=== PATIENT | female | born 1940 | race Caucasian/White ===

== ENCOUNTER 2016-09-30 15:46 | Inpatient (IN) | payer BC ==
[~2016-09-30] VITALS: Ht 165.1 cm; Wt 121.9 kg
[2016-09-30] MEDS ORDERED: Furosemide 40 MG/4 ML VIAL ONE (18:52)
[2016-09-30 20:30] VITALS: BP_SYST 102; RESP 18; TEMP 97.5; Ht 165.1 cm; Wt 121.9 kg
[2016-09-30] MEDS ORDERED: ONDANSETRON 4 MG VIAL IV PRN (20:45)
[2016-09-30] MEDS ORDERED: Furosemide 20 MG/2 ML VIAL IV ONE (20:45)
[2016-09-30] MEDS: TRAZODONE 50 MG TAB PO SCH (21:00)
[2016-09-30] MEDS: DIVALPROEX DR 500 MG TAB PO SCH (21:00)
[2016-09-30] MEDS: QUEtiapine 200 MG TAB PO SCH (21:00)
[2016-09-30 23:00] VITALS: BP_SYST 112; RESP 18; TEMP 97.6
[2016-10-01 03:00] VITALS: BP_SYST 99; RESP 18; TEMP 97.7
[2016-10-01] MEDS ORDERED: Furosemide 40 MG/4 ML VIAL IV SCH (08:00)
[2016-10-01] MEDS: ASPIRIN EC 81 MG TAB PO SCH (08:00)
[2016-10-01] MEDS ORDERED: MISSING DOSE XX ONE (08:25)
[2016-10-01 08:35] VITALS: RESP 18; TEMP 97.8
[2016-10-01] MEDS: LURASIDONE HCL 40 MG PO SCH (09:00)
[2016-10-01] MEDS ORDERED: ENOXAPARIN 40 MG/0.4 ML SYR SUBQ SCH (09:00)
[2016-10-01] MEDS ORDERED: DEXAMETHASONE 4 MG TAB PO SCH (09:00)
[2016-10-01] MEDS ORDERED: MEMANTINE HCL 7 MG PO SCH (09:00)
[2016-10-01] MEDS: DIVALPROEX DR 500 MG TAB PO SCH ×2 (09:09→20:31)
[2016-10-01] MEDS: LEVOTHYROXINE 0.075 MG TAB PO SCH (09:09)
[2016-10-01] MEDS: FLUOXETINE 20 MG CAP PO SCH (09:09)
[2016-10-01 12:23] VITALS: BP_SYST 123
[2016-10-01 12:27] VITALS: RESP 18; TEMP 97.7
[2016-10-01] MEDS: ENOXAPARIN 30 MG/0.3 ML SYR SUBQ SCH (13:23)
[2016-10-01] MEDS: Carvedilol 3.125 MG TAB PO SCH ×2 (15:05→20:31)
[2016-10-01] MEDS: LISINOPRIL 2.5 MG TAB PO SCH (15:05)
[2016-10-01] MEDS: MEMANTINE 5 MG TAB PO SCH (16:45)
[2016-10-01 17:02] VITALS: BP_SYST 103; RESP 18; TEMP 97.3
[2016-10-01] MEDS: ACETAMINOPHEN 325 MG TAB PO PRN (18:36)
[2016-10-01 19:00] VITALS: BP_SYST 127; RESP 18; TEMP 97.6
[2016-10-01] MEDS: TRAZODONE 50 MG TAB PO SCH (20:31)
[2016-10-01] MEDS: QUEtiapine 200 MG TAB PO SCH (20:31)
[2016-10-02] VITALS (12 sets, daily range): BP systolic 80–131; RESP 18–24; TEMP 97.3–98.6
[2016-10-02] MEDS: LEVOTHYROXINE 0.075 MG TAB PO SCH (06:19)
[2016-10-02] MEDS: MEMANTINE 5 MG TAB PO SCH (08:16)
[2016-10-02] MEDS: DIVALPROEX DR 500 MG TAB PO SCH ×2 (08:16→20:16)
[2016-10-02] MEDS: ASPIRIN EC 81 MG TAB PO SCH (08:16)
[2016-10-02] MEDS: FLUOXETINE 20 MG CAP PO SCH (08:16)
[2016-10-02] MEDS: LURASIDONE HCL 40 MG PO SCH (08:17)
[2016-10-02] MEDS: LISINOPRIL 2.5 MG TAB PO SCH (08:18)
[2016-10-02] MEDS: Carvedilol 3.125 MG TAB PO SCH (08:18)
[2016-10-02] MEDS ORDERED: DEXAMETHASONE 4 MG TAB PO SCH (09:00)
[2016-10-02] MEDS ORDERED: DEXAMETHASONE 0.5 MG TAB PO SCH (09:00)
[2016-10-02] MEDS: ENOXAPARIN 30 MG/0.3 ML SYR SUBQ SCH (11:35)
[2016-10-02] MEDS: ACETAMINOPHEN 325 MG TAB PO PRN (11:37)
[2016-10-02] MEDS ORDERED: Furosemide 40 MG/4 ML VIAL IV SCH (17:00)
[2016-10-02] MEDS ORDERED: AZITHROMYCIN 250 MG TAB PO ONE (18:20)
[2016-10-02] MEDS: CEFTRIAXONE 1 GM in SODIUM CHLORIDE 0.9% 50 ML IV SCH (19:47)
[2016-10-02] MEDS: ZOLPIDEM 5 MG TAB PO PRN (20:16)
[2016-10-02] MEDS: TRAZODONE 50 MG TAB PO SCH (20:16)
[2016-10-02] MEDS: QUEtiapine 200 MG TAB PO SCH (20:16)
[2016-10-03] VITALS (44 sets, daily range): BP systolic 68–130; RESP 10–22; TEMP 97.4–98.6
[2016-10-03] MEDS: LEVOTHYROXINE 0.075 MG TAB PO SCH (06:13)
[2016-10-03] MEDS: CEFTRIAXONE 1 GM in SODIUM CHLORIDE 0.9% 50 ML IV SCH (08:39)
[2016-10-03] MEDS: ASPIRIN EC 81 MG TAB PO SCH (08:39)
[2016-10-03] MEDS: FLUOXETINE 20 MG CAP PO SCH (08:40)
[2016-10-03] MEDS: MEMANTINE 5 MG TAB PO SCH (08:40)
[2016-10-03] MEDS: DIVALPROEX DR 500 MG TAB PO SCH ×2 (08:41→20:42)
[2016-10-03] MEDS: LURASIDONE HCL 40 MG PO SCH (08:41)
[2016-10-03] MEDS ORDERED: DEXAMETHASONE 4 MG TAB PO SCH (09:00)
[2016-10-03] MEDS ORDERED: SODIUM CHLORIDE 0.9% 1,000 ML IV ONE ×2 (09:00→09:15)
[2016-10-03] MEDS ORDERED: SOLU-CORTEF 100 MG/2 ML IV ONE (09:00)
[2016-10-03] MEDS ORDERED: AZITHROMYCIN 250 MG TAB PO SCH (09:00)
[2016-10-03] MEDS ORDERED: SODIUM CHLORIDE 0.9% 1,000 ML IV SCH ×2 (09:00→09:15)
[2016-10-03] MEDS ORDERED: PHARMACY TO DOSE MERREM XX SCH (09:15)
[2016-10-03] MEDS ORDERED: PHARMACY TO DOSE VANCOMYCIN IV SCH (09:15)
[2016-10-03] MEDS ORDERED: PHARMACY TO DOSE LEVAQUIN IV SCH (09:15)
[2016-10-03] MEDS ORDERED: MISSING DOSE XX ONE (09:55)
[2016-10-03] MEDS ORDERED: LACT RINGERS 1,000 ML IV ONE ×2 (10:00)
[2016-10-03] MEDS ORDERED: NOREPINEPHRINE 16 MG in DEXTROSE 5% 234 ML IV SCH (10:00)
[2016-10-03] MEDS ORDERED: LEVOFLOXACIN 750 MG/150 ML 150 ML IV SCH (10:20)
[2016-10-03] MEDS ORDERED: VANCOMYCIN 2,250 MG in SODIUM CHLORIDE 0.9% 500 ML IV ONE (10:20)
[2016-10-03] MEDS: DUONEB INH SCH ×4 (11:20→22:53)
[2016-10-03] MEDS ORDERED: PHARMACY TO DOSE CEFEPIME IV SCH (12:00)
[2016-10-03] MEDS: LACT RINGERS 1,000 ML IV SCH (12:02)
[2016-10-03] MEDS: SOLU-CORTEF 100 MG/2 ML IV SCH ×2 (13:18→18:26)
[2016-10-03] MEDS: CEFEPIME 2000 MG/100 ML D5W 100 ML IV SCH ×2 (13:18→20:48)
[2016-10-03] MEDS: ENOXAPARIN 30 MG/0.3 ML SYR SUBQ SCH (13:20)
[2016-10-03] MEDS: QUEtiapine 200 MG TAB PO SCH (20:42)
[2016-10-03] MEDS: TRAZODONE 50 MG TAB PO SCH (21:00)
[2016-10-04] VITALS (39 sets, daily range): BP systolic 78–122; RESP 10–20; TEMP 97.6–98.2
[2016-10-04] MEDS: SOLU-CORTEF 100 MG/2 ML IV SCH ×4 (00:38→23:16)
[2016-10-04] MEDS: LACT RINGERS 1,000 ML IV SCH ×3 (00:39→18:20)
[2016-10-04] MEDS: LEVOTHYROXINE 0.075 MG TAB PO SCH (06:23)
[2016-10-04] MEDS: DUONEB INH SCH ×5 (07:09→23:06)
[2016-10-04] MEDS: LURASIDONE HCL 40 MG PO SCH (09:00)
[2016-10-04] MEDS: OXYCODONE/APAP 5/325 TAB PO PRN ×4 (09:29→23:12)
[2016-10-04] MEDS: DIVALPROEX DR 500 MG TAB PO SCH ×2 (09:30→21:04)
[2016-10-04] MEDS: FLUOXETINE 20 MG CAP PO SCH (09:31)
[2016-10-04] MEDS: ASPIRIN EC 81 MG TAB PO SCH (09:31)
[2016-10-04] MEDS: MEMANTINE 5 MG TAB PO SCH (09:31)
[2016-10-04] MEDS: CEFEPIME 2000 MG/100 ML D5W 100 ML IV SCH ×2 (09:32→21:03)
[2016-10-04] MEDS: VANCOMYCIN 2,000 MG in SODIUM CHLORIDE 0.9% 500 ML IV SCH (11:49)
[2016-10-04] MEDS: ENOXAPARIN 30 MG/0.3 ML SYR SUBQ SCH (11:50)
[2016-10-04] MEDS ORDERED: LEVOFLOXACIN 750 MG/150 ML 150 ML IV SCH (12:25)
[2016-10-04] MEDS: TRAZODONE 50 MG TAB PO SCH ×2 (20:56→23:16)
[2016-10-04] MEDS: QUEtiapine 200 MG TAB PO SCH (21:03)
[2016-10-05] VITALS (33 sets, daily range): BP systolic 83–134; RESP 10–22; TEMP 97.6–98.4
[2016-10-05] MEDS: DUONEB INH SCH ×6 (02:49→23:03)
[2016-10-05] MEDS: LACT RINGERS 1,000 ML IV SCH (02:59)
[2016-10-05] MEDS: OXYCODONE/APAP 5/325 TAB PO PRN ×4 (03:23→22:55)
[2016-10-05] MEDS: SODIUM CHLORIDE 0.9% FLUSH BAG 500 ML IV SCH (05:01)
[2016-10-05] MEDS: LEVOTHYROXINE 0.075 MG TAB PO SCH (06:41)
[2016-10-05] MEDS: ASPIRIN EC 81 MG TAB PO SCH (08:04)
[2016-10-05] MEDS: MEMANTINE 5 MG TAB PO SCH (08:05)
[2016-10-05] MEDS: FLUOXETINE 20 MG CAP PO SCH (08:05)
[2016-10-05] MEDS: DIVALPROEX DR 500 MG TAB PO SCH ×2 (08:05→19:41)
[2016-10-05] MEDS: SOLU-CORTEF 100 MG/2 ML IV SCH ×2 (08:07→19:42)
[2016-10-05] MEDS: CEFEPIME 2000 MG/100 ML D5W 100 ML IV SCH ×2 (08:13→19:40)
[2016-10-05] MEDS ORDERED: SODIUM PHOSPHATE 30 MM in SODIUM CHLORIDE 0.9% 250 ML IV ONE (08:25)
[2016-10-05] MEDS: LURASIDONE HCL 40 MG PO SCH (09:00)
[2016-10-05] MEDS: ACETAMINOPHEN 325 MG TAB PO PRN (10:09)
[2016-10-05] MEDS: VANCOMYCIN 2,000 MG in SODIUM CHLORIDE 0.9% 500 ML IV SCH (11:51)
[2016-10-05] MEDS: ENOXAPARIN 30 MG/0.3 ML SYR SUBQ SCH (11:52)
[2016-10-05] MEDS: MORPHINE 2 MG/ML SYR IV PRN ×3 (16:26→23:48)
[2016-10-05] MEDS: TRAZODONE 50 MG TAB PO SCH (19:41)
[2016-10-05] MEDS: QUEtiapine 200 MG TAB PO SCH (19:41)
[2016-10-06] VITALS (24 sets, daily range): BP systolic 91–169; RESP 8–22; TEMP 97.6–98.2
[2016-10-06] MEDS: DUONEB INH SCH ×6 (03:06→22:48)
[2016-10-06] MEDS: OXYCODONE/APAP 5/325 TAB PO PRN (05:05)
[2016-10-06] MEDS: SODIUM CHLORIDE 0.9% FLUSH BAG 500 ML IV SCH (05:05)
[2016-10-06] MEDS: LEVOTHYROXINE 0.075 MG TAB PO SCH (05:05)
[2016-10-06] MEDS: MORPHINE 2 MG/ML SYR IV PRN ×3 (08:00→18:26)
[2016-10-06] MEDS: SOLU-CORTEF 100 MG/2 ML IV SCH ×2 (08:09→20:36)
[2016-10-06] MEDS: CEFEPIME 2000 MG/100 ML D5W 100 ML IV SCH (08:09)
[2016-10-06] MEDS: ASPIRIN EC 81 MG TAB PO SCH (08:09)
[2016-10-06] MEDS: MEMANTINE 5 MG TAB PO SCH (08:10)
[2016-10-06] MEDS: FLUOXETINE 20 MG CAP PO SCH (08:10)
[2016-10-06] MEDS: DIVALPROEX DR 500 MG TAB PO SCH ×2 (08:10→20:36)
[2016-10-06] MEDS: LURASIDONE HCL 40 MG PO SCH (09:00)
[2016-10-06] MEDS ORDERED: Furosemide 40 MG/4 ML VIAL IV ONE (11:00)
[2016-10-06] MEDS: ENOXAPARIN 30 MG/0.3 ML SYR SUBQ SCH (11:24)
[2016-10-06] MEDS: Furosemide 40 MG/4 ML VIAL IV SCH (16:11)
[2016-10-06] MEDS: ZOLPIDEM 5 MG TAB PO PRN (20:36)
[2016-10-06] MEDS: TRAZODONE 50 MG TAB PO SCH (20:36)
[2016-10-06] MEDS: QUEtiapine 200 MG TAB PO SCH (20:36)
[2016-10-07] VITALS (17 sets, daily range): BP systolic 83–140; RESP 9–21; TEMP 97.2–98.6
[2016-10-07] MEDS: MORPHINE 2 MG/ML SYR IV PRN ×3 (00:30→21:52)
[2016-10-07] MEDS: DUONEB INH SCH ×6 (02:37→23:15)
[2016-10-07] MEDS: SODIUM CHLORIDE 0.9% FLUSH BAG 500 ML IV SCH (05:55)
[2016-10-07] MEDS: LEVOTHYROXINE 0.075 MG TAB PO SCH (08:26)
[2016-10-07] MEDS: SOLU-CORTEF 100 MG/2 ML IV SCH ×2 (08:27→20:02)
[2016-10-07] MEDS: Furosemide 40 MG/4 ML VIAL IV SCH ×2 (08:28→17:42)
[2016-10-07] MEDS: ASPIRIN EC 81 MG TAB PO SCH (08:28)
[2016-10-07] MEDS: DIVALPROEX DR 500 MG TAB PO SCH ×2 (08:29→20:03)
[2016-10-07] MEDS: CEFTRIAXONE 1 GM in SODIUM CHLORIDE 0.9% 50 ML IV SCH (08:29)
[2016-10-07] MEDS: MEMANTINE 5 MG TAB PO SCH (08:30)
[2016-10-07] MEDS: FLUOXETINE 20 MG CAP PO SCH (08:30)
[2016-10-07] MEDS ORDERED: [UNRECOGNIZED DRUG - REMARK] XX SCH (08:38)
[2016-10-07] MEDS: ENOXAPARIN 30 MG/0.3 ML SYR SUBQ SCH (12:18)
[2016-10-07] MEDS: OXYCODONE/APAP 5/325 TAB PO PRN ×2 (15:11→20:03)
[2016-10-07] MEDS: POLYETHYLENE GLYCOL 17 GM PACKET PO SCH (15:11)
[2016-10-07] MEDS: LURASIDONE HCL 40 MG PO SCH (15:12)
[2016-10-07] MEDS: TRAZODONE 50 MG TAB PO SCH (20:03)
[2016-10-07] MEDS: QUEtiapine 200 MG TAB PO SCH (20:03)
[2016-10-07] MEDS: ZOLPIDEM 5 MG TAB PO PRN (20:03)
[2016-10-08] MEDS: OXYCODONE/APAP 5/325 TAB PO PRN ×4 (00:46→18:05)
[2016-10-08] MEDS: DUONEB INH SCH ×6 (02:45→23:35)
[2016-10-08] MEDS: SODIUM CHLORIDE 0.9% FLUSH BAG 500 ML IV SCH (03:23)
[2016-10-08 03:28] VITALS: BP_SYST 118; RESP 20; TEMP 97.8
[2016-10-08] MEDS: LEVOTHYROXINE 0.075 MG TAB PO SCH (05:20)
[2016-10-08 07:28] VITALS: BP_SYST 97; RESP 18; TEMP 97.7
[2016-10-08] MEDS: LURASIDONE HCL 40 MG PO SCH (08:24)
[2016-10-08] MEDS: Furosemide 40 MG/4 ML VIAL IV SCH ×2 (08:50→17:58)
[2016-10-08] MEDS: FLUOXETINE 20 MG CAP PO SCH (08:50)
[2016-10-08] MEDS: SOLU-CORTEF 100 MG/2 ML IV SCH ×2 (08:50→21:12)
[2016-10-08] MEDS: ASPIRIN EC 81 MG TAB PO SCH (08:50)
[2016-10-08] MEDS: DIVALPROEX DR 500 MG TAB PO SCH ×2 (08:50→21:07)
[2016-10-08] MEDS: MEMANTINE 5 MG TAB PO SCH (08:50)
[2016-10-08] MEDS: POLYETHYLENE GLYCOL 17 GM PACKET PO SCH (08:51)
[2016-10-08] MEDS: LIDOCAINE 5% 700 MG PATCH TOPICAL PRN (08:51)
[2016-10-08] MEDS: CEFTRIAXONE 1 GM in SODIUM CHLORIDE 0.9% 50 ML IV SCH (08:51)
[2016-10-08] MEDS: BISACODYL 10 MG SUPP RECTAL PRN (11:12)
[2016-10-08 11:43] VITALS: BP_SYST 130; RESP 18; TEMP 97.9
[2016-10-08] MEDS ORDERED: MISSING DOSE XX ONE (12:30)
[2016-10-08] MEDS: ENOXAPARIN 30 MG/0.3 ML SYR SUBQ SCH (12:42)
[2016-10-08] MEDS: BISACODYL EC 5 MG TAB PO PRN (13:27)
[2016-10-08 15:23] VITALS: BP_SYST 112; RESP 18; TEMP 97.2
[2016-10-08] MEDS ORDERED: METOLAZONE 5 MG TAB PO ONE (16:40)
[2016-10-08 19:57] VITALS: BP_SYST 132; RESP 20; TEMP 98
[2016-10-08] MEDS: TRAZODONE 50 MG TAB PO SCH (21:07)
[2016-10-08] MEDS: ZOLPIDEM 5 MG TAB PO PRN (21:07)
[2016-10-08] MEDS: QUEtiapine 200 MG TAB PO SCH (21:07)
[2016-10-08] MEDS: **NOTE TO NURSE XX SCH (21:29)
[2016-10-09] VITALS (7 sets, daily range): BP systolic 95–131; RESP 12–20; TEMP 97.4–98.2
[2016-10-09] MEDS: DUONEB INH SCH ×6 (02:34→23:03)
[2016-10-09] MEDS ORDERED: MISSING DOSE XX ONE (05:10)
[2016-10-09] MEDS: SODIUM CHLORIDE 0.9% FLUSH BAG 500 ML IV SCH (05:57)
[2016-10-09] MEDS: BISACODYL EC 5 MG TAB PO PRN (05:57)
[2016-10-09] MEDS: LEVOTHYROXINE 0.075 MG TAB PO SCH (05:57)
[2016-10-09] MEDS: OXYCODONE/APAP 5/325 TAB PO PRN ×4 (05:58→20:32)
[2016-10-09] MEDS: **NOTE TO NURSE XX SCH ×2 (08:00→20:00)
[2016-10-09] MEDS: SOLU-CORTEF 100 MG/2 ML IV SCH ×2 (08:49→20:33)
[2016-10-09] MEDS: CEFTRIAXONE 1 GM in SODIUM CHLORIDE 0.9% 50 ML IV SCH (08:50)
[2016-10-09] MEDS: Furosemide 40 MG/4 ML VIAL IV SCH ×2 (08:50→16:20)
[2016-10-09] MEDS: LIDOCAINE 5% 700 MG PATCH TOPICAL PRN (08:50)
[2016-10-09] MEDS: POLYETHYLENE GLYCOL 17 GM PACKET PO SCH (08:50)
[2016-10-09] MEDS: METOLAZONE 5 MG TAB PO SCH (08:51)
[2016-10-09] MEDS: FLUOXETINE 20 MG CAP PO SCH (08:51)
[2016-10-09] MEDS: DIVALPROEX DR 500 MG TAB PO SCH ×2 (08:51→20:37)
[2016-10-09] MEDS: ASPIRIN EC 81 MG TAB PO SCH (08:51)
[2016-10-09] MEDS: MEMANTINE 5 MG TAB PO SCH (08:51)
[2016-10-09] MEDS: LURASIDONE HCL 40 MG PO SCH (08:52)
[2016-10-09] MEDS: BISACODYL 10 MG SUPP RECTAL PRN (12:45)
[2016-10-09] MEDS: ENOXAPARIN 30 MG/0.3 ML SYR SUBQ SCH (12:48)
[2016-10-09] MEDS ORDERED: SALINE FLUSH 10 ML FLUSH PRN (19:05)
[2016-10-09] MEDS: SALINE FLUSH 10 ML FLUSH SCH (20:33)
[2016-10-09] MEDS: TRAZODONE 50 MG TAB PO SCH (20:37)
[2016-10-09] MEDS: QUEtiapine 200 MG TAB PO SCH (21:04)
[2016-10-09] MEDS: ZOLPIDEM 5 MG TAB PO PRN (22:17)
[2016-10-10] VITALS (7 sets, daily range): BP systolic 101–129; RESP 12–20; TEMP 97.3–98.1
[2016-10-10] MEDS: DUONEB INH SCH ×6 (02:18→22:50)
[2016-10-10] MEDS ORDERED: MISSING DOSE XX ONE (05:50)
[2016-10-10] MEDS: OXYCODONE/APAP 5/325 TAB PO PRN ×4 (06:10→19:59)
[2016-10-10] MEDS: SODIUM CHLORIDE 0.9% FLUSH BAG 500 ML IV SCH (06:10)
[2016-10-10] MEDS: BISACODYL EC 5 MG TAB PO PRN (06:12)
[2016-10-10] MEDS: LEVOTHYROXINE 0.075 MG TAB PO SCH (06:13)
[2016-10-10] MEDS: **NOTE TO NURSE XX SCH ×2 (08:00→19:58)
[2016-10-10] MEDS: SALINE FLUSH 10 ML FLUSH SCH ×2 (08:08→19:58)
[2016-10-10] MEDS: ASPIRIN EC 81 MG TAB PO SCH (08:09)
[2016-10-10] MEDS: SOLU-CORTEF 100 MG/2 ML IV SCH ×2 (08:09→19:58)
[2016-10-10] MEDS: Furosemide 40 MG/4 ML VIAL IV SCH ×2 (08:09→17:47)
[2016-10-10] MEDS: METOLAZONE 5 MG TAB PO SCH (08:10)
[2016-10-10] MEDS: POLYETHYLENE GLYCOL 17 GM PACKET PO SCH (08:10)
[2016-10-10] MEDS: FLUOXETINE 20 MG CAP PO SCH (08:10)
[2016-10-10] MEDS: DIVALPROEX DR 500 MG TAB PO SCH ×2 (08:10→19:59)
[2016-10-10] MEDS: MEMANTINE 5 MG TAB PO SCH (08:10)
[2016-10-10] MEDS: CEFTRIAXONE 1 GM in SODIUM CHLORIDE 0.9% 50 ML IV SCH (08:10)
[2016-10-10] MEDS: BISACODYL 10 MG SUPP RECTAL PRN (11:18)
[2016-10-10] MEDS: ENOXAPARIN 30 MG/0.3 ML SYR SUBQ SCH (11:18)
[2016-10-10] MEDS ORDERED: KCL CR 20 MEQ TAB PO ONE (13:25)
[2016-10-10] MEDS: QUEtiapine 200 MG TAB PO SCH (19:59)
[2016-10-10] MEDS: TRAZODONE 50 MG TAB PO SCH (19:59)
[2016-10-10] MEDS: ZOLPIDEM 5 MG TAB PO PRN (23:06)
[2016-10-11] MEDS: DUONEB INH SCH ×6 (02:40→23:06)
[2016-10-11 04:07] VITALS: BP_SYST 108; RESP 18; TEMP 97.6
[2016-10-11] MEDS: LEVOTHYROXINE 0.075 MG TAB PO SCH (05:46)
[2016-10-11] MEDS: SODIUM CHLORIDE 0.9% FLUSH BAG 500 ML IV SCH (05:46)
[2016-10-11] MEDS: OXYCODONE/APAP 5/325 TAB PO PRN ×4 (05:47→22:59)
[2016-10-11 07:25] VITALS: BP_SYST 115; RESP 20; TEMP 97.4
[2016-10-11] MEDS: **NOTE TO NURSE XX SCH ×2 (08:00→20:00)
[2016-10-11] MEDS: MEMANTINE 5 MG TAB PO SCH (08:57)
[2016-10-11] MEDS: METOLAZONE 5 MG TAB PO SCH (08:58)
[2016-10-11] MEDS: FLUOXETINE 20 MG CAP PO SCH (08:58)
[2016-10-11] MEDS: ASPIRIN EC 81 MG TAB PO SCH (08:58)
[2016-10-11] MEDS: POLYETHYLENE GLYCOL 17 GM PACKET PO SCH (08:58)
[2016-10-11] MEDS: Furosemide 40 MG/4 ML VIAL IV SCH ×2 (08:58→17:27)
[2016-10-11] MEDS: DIVALPROEX DR 500 MG TAB PO SCH ×2 (08:58→20:18)
[2016-10-11] MEDS: CEFTRIAXONE 1 GM in SODIUM CHLORIDE 0.9% 50 ML IV SCH (08:58)
[2016-10-11] MEDS: SALINE FLUSH 10 ML FLUSH SCH ×2 (08:59→20:18)
[2016-10-11] MEDS: SOLU-CORTEF 100 MG/2 ML IV SCH ×2 (08:59→20:18)
[2016-10-11] MEDS: ENOXAPARIN 30 MG/0.3 ML SYR SUBQ SCH (11:24)
[2016-10-11 13:26] VITALS: BP_SYST 126; RESP 20; TEMP 98.1
[2016-10-11] MEDS ORDERED: MAG HYDROX 30 ML UDC PO ONE (15:35)
[2016-10-11 15:42] VITALS: BP_SYST 121; RESP 18; TEMP 98.3
[2016-10-11] MEDS: BISACODYL 10 MG SUPP RECTAL PRN (18:45)
[2016-10-11 19:28] VITALS: BP_SYST 104; RESP 18; TEMP 97.6
[2016-10-11] MEDS: ZOLPIDEM 5 MG TAB PO PRN (20:17)
[2016-10-11] MEDS: TRAZODONE 50 MG TAB PO SCH (20:18)
[2016-10-11] MEDS: QUEtiapine 200 MG TAB PO SCH (20:18)
[2016-10-11 23:44] VITALS: BP_SYST 104; RESP 16; TEMP 98
[2016-10-12] MEDS: DUONEB INH SCH ×6 (02:31→23:15)
[2016-10-12] MEDS ORDERED: MISSING DOSE XX ONE (02:45)
[2016-10-12] MEDS: OXYCODONE/APAP 5/325 TAB PO PRN ×3 (02:54→17:35)
[2016-10-12 04:03] VITALS: BP_SYST 100; RESP 20; TEMP 98.2
[2016-10-12] MEDS: BISACODYL EC 5 MG TAB PO PRN (06:20)
[2016-10-12] MEDS: LEVOTHYROXINE 0.075 MG TAB PO SCH (06:20)
[2016-10-12] MEDS: SODIUM CHLORIDE 0.9% FLUSH BAG 500 ML IV SCH (06:20)
[2016-10-12 07:51] VITALS: BP_SYST 113; RESP 16; TEMP 98.5
[2016-10-12] MEDS: **NOTE TO NURSE XX SCH ×2 (08:00→20:00)
[2016-10-12] MEDS: SOLU-CORTEF 100 MG/2 ML IV SCH ×2 (08:23→21:00)
[2016-10-12] MEDS: CEFTRIAXONE 1 GM in SODIUM CHLORIDE 0.9% 50 ML IV SCH (08:23)
[2016-10-12] MEDS: POLYETHYLENE GLYCOL 17 GM PACKET PO SCH (08:24)
[2016-10-12] MEDS: MEMANTINE 5 MG TAB PO SCH (08:24)
[2016-10-12] MEDS: Furosemide 40 MG/4 ML VIAL IV SCH ×2 (08:24→17:35)
[2016-10-12] MEDS: SALINE FLUSH 10 ML FLUSH SCH ×2 (08:24→20:59)
[2016-10-12] MEDS: ASPIRIN EC 81 MG TAB PO SCH (08:24)
[2016-10-12] MEDS: FLUOXETINE 20 MG CAP PO SCH (08:24)
[2016-10-12] MEDS: DIVALPROEX DR 500 MG TAB PO SCH ×2 (08:24→21:01)
[2016-10-12] MEDS: METOLAZONE 5 MG TAB PO SCH (08:25)
[2016-10-12 11:09] VITALS: BP_SYST 140; RESP 20; TEMP 97.8
[2016-10-12] MEDS: ENOXAPARIN 30 MG/0.3 ML SYR SUBQ SCH (12:01)
[2016-10-12] MEDS: BISACODYL 10 MG SUPP RECTAL PRN ×2 (14:05→14:23)
[2016-10-12 15:03] VITALS: BP_SYST 115; RESP 16; TEMP 98.1
[2016-10-12 19:55] VITALS: BP_SYST 125; RESP 16; TEMP 97.7
[2016-10-12] MEDS: TRAZODONE 50 MG TAB PO SCH (21:00)
[2016-10-12] MEDS: ZOLPIDEM 5 MG TAB PO PRN (21:00)
[2016-10-12] MEDS: QUEtiapine 200 MG TAB PO SCH (21:01)
[2016-10-13] VITALS (7 sets, daily range): BP systolic 102–128; RESP 16–20; TEMP 97.5–98.4
[2016-10-13] MEDS: OXYCODONE/APAP 5/325 TAB PO PRN ×4 (00:22→20:46)
[2016-10-13] MEDS: DUONEB INH SCH ×6 (02:36→23:39)
[2016-10-13] MEDS ORDERED: MISSING DOSE XX ONE (05:05)
[2016-10-13] MEDS: SODIUM CHLORIDE 0.9% FLUSH BAG 500 ML IV SCH (05:58)
[2016-10-13] MEDS: BISACODYL EC 5 MG TAB PO PRN (05:58)
[2016-10-13] MEDS: LEVOTHYROXINE 0.075 MG TAB PO SCH (06:00)
[2016-10-13] MEDS: **NOTE TO NURSE XX SCH ×2 (08:00→20:00)
[2016-10-13] MEDS: SALINE FLUSH 10 ML FLUSH SCH ×2 (08:28→20:45)
[2016-10-13] MEDS: ASPIRIN EC 81 MG TAB PO SCH (08:29)
[2016-10-13] MEDS: SOLU-CORTEF 100 MG/2 ML IV SCH ×2 (08:29→20:45)
[2016-10-13] MEDS: DIVALPROEX DR 500 MG TAB PO SCH ×2 (08:30→20:46)
[2016-10-13] MEDS: POLYETHYLENE GLYCOL 17 GM PACKET PO SCH (08:30)
[2016-10-13] MEDS: FLUOXETINE 20 MG CAP PO SCH (08:30)
[2016-10-13] MEDS: CEFTRIAXONE 1 GM in SODIUM CHLORIDE 0.9% 50 ML IV SCH (08:30)
[2016-10-13] MEDS: MEMANTINE 5 MG TAB PO SCH (08:30)
[2016-10-13] MEDS: METOLAZONE 5 MG TAB PO SCH (08:31)
[2016-10-13] MEDS ORDERED: MAG CIT SOLN 300 ML PO ONE (11:35)
[2016-10-13] MEDS: KCL CR 20 MEQ TAB PO SCH ×3 (12:05→20:46)
[2016-10-13] MEDS: Furosemide 40 MG/4 ML VIAL IV SCH ×2 (12:05→16:07)
[2016-10-13] MEDS: ENOXAPARIN 30 MG/0.3 ML SYR SUBQ SCH (12:07)
[2016-10-13] MEDS: TRAZODONE 50 MG TAB PO SCH (20:45)
[2016-10-13] MEDS: QUEtiapine 200 MG TAB PO SCH (20:45)
[2016-10-13] MEDS: ZOLPIDEM 5 MG TAB PO PRN (20:46)
[2016-10-14] MEDS: OXYCODONE/APAP 5/325 TAB PO PRN ×4 (01:45→17:16)
[2016-10-14] MEDS: DUONEB INH SCH ×4 (02:52→15:00)
[2016-10-14 03:00] VITALS: BP_SYST 128; RESP 16; TEMP 98.2
[2016-10-14] MEDS ORDERED: MISSING DOSE XX ONE (05:25)
[2016-10-14] MEDS: BISACODYL EC 5 MG TAB PO PRN (06:10)
[2016-10-14] MEDS: LEVOTHYROXINE 0.075 MG TAB PO SCH (06:10)
[2016-10-14] MEDS: SODIUM CHLORIDE 0.9% FLUSH BAG 500 ML IV SCH (06:11)
[2016-10-14 07:22] VITALS: BP_SYST 114; RESP 18; TEMP 97.4
[2016-10-14] MEDS: BISACODYL 10 MG SUPP RECTAL PRN (07:25)
[2016-10-14] MEDS: **NOTE TO NURSE XX SCH (08:00)
[2016-10-14] MEDS: SALINE FLUSH 10 ML FLUSH SCH (08:10)
[2016-10-14] MEDS: KCL CR 20 MEQ TAB PO SCH ×2 (08:11→17:15)
[2016-10-14] MEDS: DIVALPROEX DR 500 MG TAB PO SCH (08:11)
[2016-10-14] MEDS: FLUOXETINE 20 MG CAP PO SCH (08:11)
[2016-10-14] MEDS: SOLU-CORTEF 100 MG/2 ML IV SCH (08:11)
[2016-10-14] MEDS: POLYETHYLENE GLYCOL 17 GM PACKET PO SCH (08:12)
[2016-10-14] MEDS: CEFTRIAXONE 1 GM in SODIUM CHLORIDE 0.9% 50 ML IV SCH (08:12)
[2016-10-14] MEDS: METOLAZONE 5 MG TAB PO SCH (08:12)
[2016-10-14] MEDS: ASPIRIN EC 81 MG TAB PO SCH (08:12)
[2016-10-14] MEDS: MEMANTINE 5 MG TAB PO SCH (08:12)
[2016-10-14] MEDS ORDERED: Furosemide 40 MG TAB PO SCH (09:00)
[2016-10-14] MEDS ORDERED: MAG CIT SOLN 300 ML PO ONE (10:45)
[2016-10-14 11:23] VITALS: BP_SYST 124; RESP 18; TEMP 97.2
[2016-10-14] MEDS: ENOXAPARIN 30 MG/0.3 ML SYR SUBQ SCH (11:36)
[2016-10-14 15:23] VITALS: BP_SYST 126; RESP 20; TEMP 97.6
[2016-10-14 17:30] VITALS: BP_SYST 126; RESP 20; TEMP 97.6
[2016-10-14 17:32] VITALS: BP_SYST 126; RESP 20; TEMP 97.6
== END 2016-10-14 18:36 | DRG 871 ==
LOC: ENRESERVTM → ENRESERVDT → ER 15:46 → ENPENDDIS 19:11 → EMR 19:11 → PCU 20:23 → ICU 10-03 09:45 → 4NT 10-07 13:06
PROVIDERS: ADMIT Internal Medicine; ATTEND Internal Medicine
PROC: 03HY32Z Insertion of Monitoring Device into Upper Artery, Percutaneous Approach (ICD-10-PCS; principal; 2016-10-03)
PROC: 4A133B1 Monitoring of Arterial Pressure, Peripheral, Percutaneous Approach (ICD-10-PCS; 2016-10-03)
PROC: 02HV33Z Insertion of Infusion Device into Superior Vena Cava, Percutaneous Approach (ICD-10-PCS; 2016-10-03)
PROC: B548ZZA Ultrasonography of Superior Vena Cava, Guidance (ICD-10-PCS; 2016-10-03)
CPT/HCPCS: 36415; 36558; 36600; 71010; 71250; 72100; 76700; 78582; 80048; 80053; 80061; 80202; 81001; 82085; 82550; 82553; 82570; 82803; 83605; 83735; 83880; 84100; 84145; 84156; 84439; 84443; 84484; 85025; 86701; 87040; 87088; 87278; 87299; 93005; 93306; 94640; 94799; 96374; 99223; 99231; 99232; 99233; 99239; 99291